=== PATIENT | female | born 1995 | race African-American/Black ===

== ENCOUNTER 2018-02-08 07:37 | Emergency (ER) | payer SELFPAY ==
[~2018-02-08 07:37] MED LIST: ACET500T68 PO; ALBU8.5H8 INH; CIPR500T94 PO; HYDR-971 PO
[2018-02-08] MEDS ORDERED: KETOROLAC 60 MG/2 ML VIAL. IM ONE (08:30)
[2018-02-08 09:28] LABS: BACTERIA,URINE MOD /HPF (0-FEW); BILIRUBIN,URINE NEG (NEG); CLARITY,URINE CLOUDY; COLOR,URINE AMBER; GLUCOSE,URINE NEG (NEG); NITRITE,URINE NEG (NEG); RBC,URINE >40 /HPF (0-2); SQUAMOUS EPITHELIAL CELL,UR OCC /LPF; UROBILINOGEN,URINE 0.2 mg/dL (0.2 mg/dL)
[2018-02-08 09:29] LABS: U PREG PATIENT NEGATIVE (NEG)
--- NOTE | 2018-02-08 09:33 | PHYS DOC ---
Past History Past Medical History: Asthma Past Surgical History: No Surgical History Alcohol Use: None Drug Use: None Adult General Chief Complaint Chief Complaint: MENSTRUAL PAIN/CRAMPS HPI HPI Patient is a 22 year old F who presents with menstrual cramps over the past 1-2 days. Lora states that she is having intermittent cramping pain in the lower abdomen. She denies other associated symptoms. She has no other exacerbating or alleviating factors. Review of Systems Review of Systems Constitutional: Denies fever or chills [] Eyes: Denies change in visual acuity, redness, or eye pain [] HENT: Denies nasal congestion or sore throat [] Respiratory: Denies cough or shortness of breath [] Cardiovascular: No additional information not addressed in HPI [] GI: Denies nausea, vomiting, bloody stools or diarrhea [] : Denies dysuria or hematuria [] Musculoskeletal: Denies back pain or joint pain [] Integument: Denies rash or skin lesions [] Neurologic: Denies headache, focal weakness or sensory changes [] Endocrine: Denies polyuria or polydipsia [] All other systems were reviewed and found to be within normal limits, except as documented in this note. Family History Family History No pertinent family medical history was reported Current Medications Current Medications Current Medications Medications (Trade) Dose Ordered Sig/[facility] Start Time Stop Time Status Last Admin Dose Admin Ketorolac Tromethamine (Toradol) 30 mg 1X ONCE 02/08/18 08:30 02/08/18 08:31 DC 02/08/18 09:04 30 MG Allergies Allergies Allergies Coded Allergies Type Severity Reaction Last Updated Verified Sulfa (Sulfonamide Antibiotics) Allergy Unknown 09/07/16 Yes carrot Allergy Unknown 09/07/16 Yes Physical Exam Physical Exam Constitutional: Well developed, well nourished, no acute distress, non-toxic appearance. [] HENT: Normocephalic, atraumatic, Eyes: EOMI, conjunctiva normal, no discharge. [] Neck: Normal range of motion, no tenderness, supple, no stridor. [] Cardiovascular:Heart rate regular rhythm, no murmur [] Lungs & Thorax: Bilateral breath sounds clear to auscultation [] Abdomen: Bowel sounds normal, soft, no masses, no pulsatile masses. [] Mild generalized tenderness to palpation Skin: Warm, dry, no erythema, no rash. [] Back: No tenderness, no CVA tenderness. [] Extremities: No tenderness, no cyanosis, no clubbing, ROM intact, no edema. [] Neurologic: Alert and oriented X 3, normal motor function, normal sensory function, no focal deficits noted. [] Psychologic: Affect normal, judgement normal, mood normal. [] Current Patient Data Vital Signs Vital Signs Date Time Temp Pulse Resp B/P (MAP) Pulse Ox O2 Delivery O2 Flow Rate FiO2 02/08/18 09:10 74 20 106/54 (71) 98 02/08/18 07:55 98.0 Lab Results Laboratory Tests Test 02/08/18 07:58 POC Urine HCG, Qualitative hcg negative (Negative) EKG EKG [] Radiology/Procedures Radiology/Procedures [] Course & Med Decision Making Course & Med Decision Making Pertinent Labs and Imaging studies reviewed. (See chart for details) Her symptoms did improve after Toradol IM Dragon Disclaimer Dragon Disclaimer This electronic medical record was generated, in whole or in part, using a voice recognition dictation system. Departure Departure: Impression: Primary Impression: Menstrual cramps Disposition: HOME, SELF-CARE Condition: STABLE Referrals: PCPNO (PCP) Patient Instructions: Abdominal Pain, Women Additional Instructions: Lora was seen in the emergency department for menstrual cramps. No emergency medical condition was found on history or physical exam. She was given treatment and her symptoms improved. She was encouraged follow-up with primary care doctor as needed for further management KATIUSKA GUZMAN MD Feb 08, 2018 09:33
[2018-02-08 10:00] VITALS: BP 103/64
== END 2018-02-08 09:45 | disposition home or self-care (01) ==
LOC: ER 07:37
DX: N94.6 Dysmenorrhea, unspecified (principal); J45.909 Unspecified asthma, uncomplicated; Z88.2 Allergy status to sulfonamides; Z91.018 Allergy to other foods
CPT/HCPCS: 81001; 81025; 84703; 87086; 96372; 99284; J1885

== ENCOUNTER 2018-12-12 01:20 | Emergency (ER) | payer SELFPAY ==
[~2018-12-12] VITALS: Ht 3 cm; Wt 63.5 kg
[~2018-12-12 01:20] MED LIST changes: +ALBU2.5V8 INH; -ALBU8.5H8 INH; +HYDR-3165 PO; -HYDR-971 PO
[2018-12-12] MEDS ORDERED: IV NORMAL SALINE 1,000ML 1,000 ML IV ONE (01:45)
[2018-12-12] MEDS ORDERED: FAMOTIDINE 20 MG/2 ML VIAL IVP ONE (01:45)
[2018-12-12] MEDS ORDERED: ONDANSETRON PF 4 MG/2 ML VIAL. IV ONE (01:45)
[2018-12-12] MEDS ORDERED: KETOROLAC 30 MG/ML VIAL. IV ONE (01:45)
[2018-12-12] MEDS ORDERED: ONDANSETRON PF 4 MG/2 ML VIAL. ONE (02:09)
[2018-12-12] MEDS ORDERED: FAMOTIDINE 20 MG/2 ML VIAL ONE (02:09)
[2018-12-12] MEDS ORDERED: KETOROLAC 15 MG/ML VIAL. ONE (02:09)
[2018-12-12 02:15] LABS: BACTERIA,URINE 0 /HPF (0-FEW); BILIRUBIN,URINE NEG (NEG); CLARITY,URINE HAZY; COLOR,URINE YELLOW; GLUCOSE,URINE NEG (NEG); NITRITE,URINE NEG (NEG); RBC,URINE >40 /HPF (0-2); SQUAMOUS EPITHELIAL CELL,UR OCC /LPF; UROBILINOGEN,URINE 0.2 mg/dL (0.2 mg/dL)
[2018-12-12 02:16] LABS: U PREG PATIENT NEGATIVE (NEG)
[2018-12-12 02:29] LABS: BASO % 1 % (0-3); EOS % 1 % (0-3); HEMATOCRIT 36.5 % (36.0-47.0); HEMOGLOBIN 12.2 g/dL (12.0-15.5); LYMPH # 2.3 x10^3/uL (1.0-4.8); LYMPH % 51 % (24-48); MEAN CORPUSCULAR HEMOGLOBIN 30 pg (25-35); MEAN CORPUSCULAR HGB CONC 34 g/dL (31-37); MEAN CORPUSCULAR VOLUME 91 fL (79-100); MONO # 0.4 x10^3/uL (0.0-1.1); MONO % 9 % (0-9); NEUT # 1.7 x10^3uL (1.8-7.7); NEUT % 38 % (31-73); PLATELET COUNT 221 x10^3/uL (140-400); RED BLOOD COUNT 4.02 x10^6/uL (3.50-5.40); WHITE BLOOD COUNT 4.5 x10^3/uL (4.0-11.0)
[2018-12-12 02:45] LABS: ALBUMIN 4.2 g/dL (3.4-5.0); ALBUMIN/GLOBULIN RATIO 1.2 (1.0-1.7); CALCIUM 9.1 mg/dL (8.5-10.1); CREATININE 0.9 mg/dL (0.6-1.0); GFR 94.7; MAGNESIUM 1.9 mg/dL (1.8-2.4); POTASSIUM 3.6 mmol/L (3.5-5.1); TOTAL BILIRUBIN 0.4 mg/dL (0.2-1.0); TOTAL PROTEIN 7.6 g/dL (6.4-8.2)
[2018-12-12] MEDS ORDERED: NAPR500T8 PO (02:52)
--- NOTE | 2018-12-12 02:53 | PHYS DOC ---
Past History Past Medical History: Asthma Past Surgical History: No Surgical History Alcohol Use: None Drug Use: None Adult General Chief Complaint Chief Complaint: ABDOMINAL PAIN HPI HPI 23-year-old female presents with report of pelvic cramping 2 days now with bleeding over the last day. Patient reports she has been using approximately 2 pads per hour. Denies fever or chills. Denies nausea or vomiting. Denies known trauma. Denies . Reports history of ovarian cyst. 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 Current Medications Current Medications Current Medications Medications (Trade) Dose Ordered Sig/Tali Start Time Stop Time Status Last Admin Dose Admin Famotidine (Pepcid Vial) 20 mg 1X ONCE 12/12/18 01:45 12/12/18 01:46 UNV 12/12/18 02:12 20 MG Ketorolac Tromethamine (Toradol 15mg Vial) 15 mg STK-MED ONCE 12/12/18 02:09 12/12/18 02:10 DC Ketorolac Tromethamine (Toradol 30mg Vial) 15 mg 1X ONCE 12/12/18 01:45 12/12/18 01:46 UNV 12/12/18 01:45 15 MG Ondansetron HCl (Zofran) 4 mg 1X ONCE 12/12/18 01:45 12/12/18 01:46 UNV 12/12/18 02:12 4 MG Sodium Chloride 1,000 ml @ 1,000 mls/hr 1X ONCE 12/12/18 01:45 12/12/18 02:44 UNV 12/12/18 02:12 1,000 MLS/HR Allergies Allergies Allergies Coded Allergies Type Severity Reaction Last Updated Verified Sulfa (Sulfonamide Antibiotics) Allergy Unknown 09/07/16 Yes carrot Allergy Unknown 09/07/16 Yes Physical Exam Physical Exam Constitutional: Well developed, well nourished, no acute distress, non-toxic appearance. [] HENT: Normocephalic, atraumatic, oropharynx moist Eyes: PERRL, EOMI, conjunctiva normal, no discharge. [] Neck: Normal range of motion, no tenderness, supple, no stridor. [] Cardiovascular: Heart rate regular rhythm, no murmur [] Lungs & Thorax: Bilateral breath sounds clear to auscultation [] Abdomen: Soft, lower pelvic pain on palpation METAL PATTERNMAKER APPRENTICE: Bone Drier RN, vaginal vault with blood noted, no CMT, no adnexal tenderness Skin: Warm, dry, no erythema, no rash. [] Back: No tenderness, no CVA tenderness. [] Extremities: No tenderness, ROM intact Neurologic: Alert and oriented X 3, normal motor function, normal sensory function, no focal deficits noted. [] Psychologic: Affect normal, judgement normal, mood normal. [] Current Patient Data Vital Signs Vital Signs Date Time Temp Pulse Resp B/P (MAP) Pulse Ox O2 Delivery O2 Flow Rate FiO2 12/12/18 01:30 97.9 80 18 98 Room Air Lab Results Laboratory Tests Test 12/12/18 01:30 12/12/18 02:00 Urine Collection Type Unknown Urine Color Yellow Urine Clarity Hazy Urine pH 5.5 Urine Specific [place] 1.025 Urine Protein 30 mg/dl (NEG-TRACE) Urine Glucose (UA) Neg mg/dL (NEG) Urine Ketones (Stick) 15 mg/dL (NEG) Urine Blood Large (NEG) Urine Nitrite Neg (NEG) Urine Bilirubin Neg (NEG) Urine Urobilinogen Dipstick 0.2 mg/dL (0.2 mg/dL) Urine Leukocyte Esterase Neg (NEG) Urine RBC >40 /HPF (0-2) Urine WBC 1-4 /HPF (0-4) Urine Squamous Epithelial Cells Occ /LPF Urine Bacteria 0 /HPF (0-FEW) Urine Test Negative (NEG) White Blood Count 4.5 x10^3/uL (4.0-11.0) Red Blood Count 4.02 x10^6/uL (3.50-5.40) Hemoglobin 12.2 g/dL (12.0-15.5) Hematocrit 36.5 % (36.0-47.0) Mean Corpuscular Volume 91 fL (79-100) Mean Corpuscular Hemoglobin 30 pg (25-35) Mean Corpuscular Hemoglobin Concent 34 g/dL (31-37) Red Cell Distribution Width 13.0 % (11.5-14.5) Platelet Count 221 x10^3/uL (140-400) Neutrophils (%) (Auto) 38 % (31-73) Lymphocytes (%) (Auto) 51 % (24-48) H Monocytes (%) (Auto) 9 % (0-9) Eosinophils (%) (Auto) 1 % (0-3) Basophils (%) (Auto) 1 % (0-3) Neutrophils # (Auto) 1.7 x10^3uL (1.8-7.7) L Lymphocytes # (Auto) 2.3 x10^3/uL (1.0-4.8) Monocytes # (Auto) 0.4 x10^3/uL (0.0-1.1) Eosinophils # (Auto) 0.0 x10^3/uL (0.0-0.7) Basophils # (Auto) 0.0 x10^3/uL (0.0-0.2) EKG EKG [] Radiology/Procedures Radiology/Procedures PROCEDURE: US PELVIS W/TV INDICATION: PELVIC PAIN CRAMPING PT STARTED PERIOD YESTERDAY BLEEDING . Last menstrual period was 12/11/2018. COMPARISON: None available. TECHNIQUE: Transabdominal and endovaginal sonography was performed FINDINGS: The uterus measures 7.7 x 3.8 x 3.6 cm. Endometrial echo complex measures 0.7 cm. No definite myometrial mass is seen. The right ovary measures 2.6 x 1.8 x 1.4 cm on the endovaginal images. The left ovary measures 3.3 x 2.0 x 1.9 cm on the endovaginal images. Flow seen to both ovaries. No definite adnexal mass is identified. There is no free fluid. IMPRESSION: 1. Essentially normal sonographic survey of the pelvis, without evidence for ovarian torsion. Electronically signed by: Javad Marie MD (12/12/2018 4:23 AM) [facility] Course & Med Decision Making Course & Med Decision Making Pertinent Labs and Imaging studies reviewed. (See chart for details) Patient presents with HPI consistent for dysmenorrhea and menorrhagia. Pain addressed. Pelvic exam performed. Chlamydia/Gonorrhea cultures pending. Patient elected to defer empiric antibiotics. Wet mount positive for BV. Labs obtained and posted to chart. H/H stable. Pelvic US without acute process. Patient stable for discharge with outpatient follow-up with PCP/METAL PATTERNMAKER APPRENTICE. [facility] report obtained without finding of controlled substance in the last 1 year. Rx for small amount of pain medication given. Discussed findings and plan with patient and friend, who acknowledge understanding and agreement. Dragon Disclaimer Dragon Disclaimer This electronic medical record was generated, in whole or in part, using a voice recognition dictation system. Departure Departure: Impression: Primary Impression: Dysmenorrhea Additional Impressions: Menorrhagia Bacterial vaginosis Disposition: HOME, SELF-CARE Condition: STABLE Referrals: PCP,KELY (PCP) Patient Instructions: Bacterial Vaginosis, [id number], Dysmenorrhea, Easy-to- Read, Menorrhagia, [id number] Additional Instructions: Please call to make an appointment to follow with an [facility]. Scripts Hydrocodone Bit/Acetaminophen (NORCO 5-325 TABLET) 1 Each Tablet 1 TAB PO Q6HRS PRN for PAIN, #10 TAB Prov: KALPANA LUCERO DO 12/12/18 Metronidazole (FLAGYL) 500 Mg Tablet 1 TAB PO BID for Vaginosis, #14 TAB Prov: KALPANA LUCERO DO 12/12/18 Naproxen (NAPROXEN) 500 Mg Tablet.dr 1 TAB PO Q12HR PRN for PAIN, #20 TAB Prov: KALPANA LUCERO DO 12/12/18 Problem Qualifiers Additional Impressions: Menorrhagia Menorrahagia type: with regular cycle Qualified Codes: N92.0 - Excessive and frequent menstruation with regular cycle KALPANA LUCERO DO Dec 12, 2018 02:53
[2018-12-12] MEDS ORDERED: METR500T PO (03:00)
[2018-12-12] MEDS ORDERED: metroNIDAZOLE 500 MG TABLET PO ONE (03:00)
[2018-12-12] MEDS ORDERED: HYDR-3165 PO (03:05)
[2018-12-12 03:06] VITALS: BP 109/68
[2018-12-12] MEDS ORDERED: metroNIDAZOLE 500 MG TABLET ONE (03:27)
--- NOTE | 2018-12-12 04:26 | RAD ---
INDICATION: PELVIC PAIN CRAMPING PT STARTED PERIOD YESTERDAY BLEEDING . Last menstrual period was 12/11/2018. COMPARISON: None available. TECHNIQUE: Transabdominal and endovaginal sonography was performed FINDINGS: The uterus measures 7.7 x 3.8 x 3.6 cm. Endometrial echo complex measures 0.7 cm. No definite myometrial mass is seen. The right ovary measures 2.6 x 1.8 x 1.4 cm on the endovaginal images. The left ovary measures 3.3 x 2.0 x 1.9 cm on the endovaginal images. Flow seen to both ovaries. No definite adnexal mass is identified. There is no free fluid. IMPRESSION: 1. Essentially normal sonographic survey of the pelvis, without evidence for ovarian torsion. Electronically signed by: Javad Marie MD (12/12/2018 4:23 AM) [facility]
[2018-12-13 13:14] LABS: CHLAMYDIA PROBE Negative (Negative)
== END 2018-12-12 03:40 | disposition home or self-care (01) ==
LOC: ER 01:20
DX: N94.6 Dysmenorrhea, unspecified (principal); N92.0 Excessive and frequent menstruation with regular cycle; N76.0 Acute vaginitis; B96.89 Other specified bacterial agents as the cause of diseases classified elsewhere; J45.909 Unspecified asthma, uncomplicated; Z88.2 Allergy status to sulfonamides; Z91.018 Allergy to other foods
CPT/HCPCS: 36415; 76830; 76856; 80053; 81001; 81025; 83690; 83735; 85025; 87491; 87591; 96374; 96375; 99284; J1885; J2405; J3010; J3490; Q0111; J7030

== ENCOUNTER 2021-04-11 09:41 | Emergency (ER) | payer BC ==
[~2021-04-11] VITALS: Ht 162.6 cm; Wt 63.6 kg
[~2021-04-11 09:41] MED LIST changes: +METR500T PO; +NAPR500T8 PO
[2021-04-11 09:45] VITALS: BP 136/90
--- NOTE | 2021-04-11 10:00 | PHYS DOC ---
Past History Past Medical History: Asthma Past Surgical History: No Surgical History Alcohol Use: None Drug Use: None Adult General HPI HPI Patient is a 26-year-old female complaining for a constellation of symptoms. Reports she is on day 9 of illness without any known inciting event, trauma, recent sick contact or travel. Reports symptoms started as a runny nose and typical URI-like symptoms that further developed into nausea and several episodes of nonbloody nonbilious emesis. Reports for past 24 hours she has had minimal p.o. intake and throwing everything up after every attempt prompting her to come in for evaluation. States she has been feverish, T-max yesterday evening was 104.9. No vision changes, nuchal rigidity, history of imm unocompromising conditions, chest pain, shortness of breath, abdominal pain, she is currently on her period. Admits to smoking and recreational alcohol use, denies illicit drug abuse. Review of Systems Review of Systems Fourteen body systems of review of systems have been reviewed. See HPI for pertinent positives and negative responses, other ambrocio all other systems are negative, non-pertinent or non-contributory Allergies Allergies Allergies Coded Allergies Type Severity Reaction Last Updated Verified Sulfa (Sulfonamide Antibiotics) Allergy Unknown 09/07/16 Yes carrot Allergy Unknown 09/07/16 Yes Physical Exam Physical Exam General: Appears well, non toxic, and comfortable Skin: Warm, dry. Normal for ethnicity. HEENT: Atraumatic. PERRLA. Rhinorrhea and congestion. Nasal turbinates boggy b/l. Moist mucous membranes. Uvula midline. Maintaining secretions but there is moderate postnasal drip present. No phonation changes. Neck: Trachea midline. Normal ROM. No stridor. No nuchal rigidity Respiratory: Normal WOB. CTAB w/o w/r/r. No tachypnea. Cardiovascular: Tachycardic rate otherwise regular rhythm. Normal peripheral perfusion. Abdomen: Soft. Non tender. No distension. Back: Normal ROM. Musculoskeletal: No swelling or deformity. Neuro: Alert and oriented x 4. MAEE. Lymph: No cervical LAD. Psych: Normal affect and mood. Current Patient Data Vital Signs Vital Signs Date Time Temp Pulse Resp B/P (MAP) Pulse Ox O2 Delivery O2 Flow Rate FiO2 04/11/21 09:45 100.4 133 22 136/90 (105) 100 Room Air Vital Signs Date Time Temp Pulse Resp B/P (MAP) Pulse Ox O2 Delivery O2 Flow Rate FiO2 04/11/21 09:45 100.4 133 22 136/90 (105) 100 Room Air Lab Results Laboratory Tests Test 04/11/21 10:40 White Blood Count 4.0 x10^3/uL Red Blood Count 4.53 x10^6/uL Hemoglobin 14.0 g/dL Hematocrit 41.1 % Mean Corpuscular Volume 91 fL Mean Corpuscular Hemoglobin 31 pg Mean Corpuscular Hemoglobin Concent 34 g/dL Red Cell Distribution Width 12.4 % Platelet Count 145 x10^3/uL Neutrophils (%) (Auto) 79 % Lymphocytes (%) (Auto) 12 % Monocytes (%) (Auto) 9 % Eosinophils (%) (Auto) 0 % Basophils (%) (Auto) 1 % Neutrophils # (Auto) 3.1 x10^3uL Lymphocytes # (Auto) 0.5 x10^3/uL Monocytes # (Auto) 0.3 x10^3/uL Eosinophils # (Auto) 0.0 x10^3/uL Basophils # (Auto) 0.0 x10^3/uL Sodium Level 141 mmol/L Potassium Level 3.8 mmol/L Chloride Level 103 mmol/L Carbon Dioxide Level 27 mmol/L Anion Gap 11 Blood Urea Nitrogen 5 mg/dL Creatinine 0.9 mg/dL Estimated GFR (Cockcroft-Gault) 92.3 Glucose Level 94 mg/dL Calcium Level 9.3 mg/dL Current Medications Medications (Trade) Dose Ordered Sig/Tali Route PRN Reason Start Time Stop Time Status Last Admin Dose Admin Sodium Chloride 1,000 ml @ 1,000 mls/hr 1X ONCE IV 04/11/21 10:45 04/11/21 11:44 04/11/21 10:45 Ondansetron HCl (Zofran) 4 mg 1X ONCE IVP 04/11/21 10:45 04/11/21 10:46 DC 04/11/21 10:45 Ketorolac Tromethamine (Toradol 15mg Vial) 15 mg 1X ONCE IVP 04/11/21 10:45 04/11/21 10:46 DC 04/11/21 10:45 EKG EKG [] Radiology/Procedures Radiology/Procedures INDICATION: Reason: COUGH / Spl. Instructions: / History: COMPARISON: None. FINDINGS: Single view of chest obtained. Hypoexpanded examination of the lungs. Cardiac silhouette unremarkable. Mild groundglass opacities. IMPRESSION: * Hypoexpanded exam with mild groundglass opacities. This could be secondary to hypoventilatory changes but small airway inflammation from causes such as pneumonitis not excluded. Electronically signed by: Randall Cherry MD (04/11/2021 11:06 AM) DESKTOP- [id number] Heart Score C/O Chest Pain: No Risk Factors: Risk Factors: DM, Current or recent (<one month) smoker, HTN, HLP, family history of CAD, obesity. Risk Scores: Risk Factors: DM, Current or recent (<one month) smoker, HTN, HLP, family history of CAD, obesity. Course & Med Decision Making Course & Med Decision Making ABCs unremarkable. I disclosed entirety of ER findings and discussed most likely diagnosis of developing pneumonia with constellation of other nonspecific sy mptoms during the middle of a COVID-19 pandemic. As such, unvaccinated individual was tested for COVID-19 today in appropriate supportive care practices in addition to a prescription for azithromycin was given. She responded to IV fluid rehydration and IV antiemetic given while in ER and felt safe for discharge home with continued supportive care and support by significant other. I stressed need for close outpatient follow-up when safe to do so to review today's ER visit. Strict return precautions were also discussed at length with good understanding by patient. Patient voiced understanding and agreement with the plan. Patient knows to come back for repeat evaluation if concerning signs or symptoms present prior to outpatient follow-up. Hemodynamically stable, ambulatory and well-appearing at time of disposition. Dragon Disclaimer Dragon Disclaimer This electronic medical record was generated, in whole or in part, using a voice recognition dictation system. Departure Departure: Impression: Primary Impression: Person under investigation for COVID-19 Additional Impression: Nausea & vomiting Disposition: 01 HOME / SELF CARE / HOMELESS Condition: IMPROVED Referrals: SÁNCHEZ ROMERO CNM (PCP) Patient Instructions: Nausea and Vomiting Additional Instructions: You were seen for headache, fever, body aches, and possible infection with COVID-19. Your physical exam was reassuring. Your chest x-ray was concerning for potential pneumonia. We tested you for COVID-19 but this test does not come back for 1 to 2 days. In the meantime you need to quarantine yourself at home away from all other individuals, especially those who are elderly or have any other chronic health issues or an immunocompromised status. You should return to the ED if you develop worsening cough, shortness of breath, chest pain, or any other new or concerning symptoms. Alternate Tylenol and ibuprofen as needed for body aches and pain. If your test does come back positive you need to quarantine yourself for 10 days until symptom-free. You should make sure to dr ink plenty of fluids and get plenty of rest. Scripts Azithromycin (AZITHROMYCIN TABLET) 250 Mg Tablet 250 MG PO DAILY for ANTI-BIOTIC for 4 Days, #4 TAB 0 Refills Prov: TANMAY MONTES DO 04/11/21 Problem Qualifiers TANMAY MONTES DO Apr 11, 2021 10:00
[2021-04-11] MEDS ORDERED: KETOROLAC 15 MG/ML VIAL. IVP ONE (10:45)
[2021-04-11] MEDS ORDERED: ONDANSETRON PF 4 MG/2 ML VIAL. IVP ONE (10:45)
[2021-04-11] MEDS ORDERED: IV NORMAL SALINE 1,000ML 1,000 ML IV ONE (10:45)
[2021-04-11 11:06] LABS: BASO % 1 % (0-3); EOS % 0 % (0-3); HEMATOCRIT 41.1 % (36.0-47.0); LYMPH # 0.5 x10^3/uL (1.0-4.8); LYMPH % 12 % (24-48); MEAN CORPUSCULAR HEMOGLOBIN 31 pg (25-35); MEAN CORPUSCULAR HGB CONC 34 g/dL (31-37); MEAN CORPUSCULAR VOLUME 91 fL (79-100); MONO # 0.3 x10^3/uL (0.0-1.1); MONO % 9 % (0-9); NEUT # 3.1 x10^3uL (1.8-7.7); NEUT % 79 % (31-73); PLATELET COUNT 145 x10^3/uL (140-400); RED BLOOD COUNT 4.53 x10^6/uL (3.50-5.40); RED CELL DISTRIBUTION WIDTH 12.4 % (11.5-14.5)
--- NOTE | 2021-04-11 11:09 | RAD ---
INDICATION: Reason: COUGH / Spl. Instructions: / History: COMPARISON: None. FINDINGS: Single view of chest obtained. Hypoexpanded examination of the lungs. Cardiac silhouette unremarkable. Mild groundglass opacities. IMPRESSION: * Hypoexpanded exam with mild groundglass opacities. This could be secondary to hypoventilatory alan ges but small airway inflammation from causes such as pneumonitis not excluded. Electronically signed by: Randall Cherry MD (04/11/2021 11:06 AM) DESKTOP-[id number]
[2021-04-11 11:12] LABS: CALCIUM 9.3 mg/dL (8.5-10.1); CREATININE 0.9 mg/dL (0.6-1.0); GFR 92.3; POTASSIUM 3.8 mmol/L (3.5-5.1)
[2021-04-11] MEDS ORDERED: AZIT250T6 PO (11:26)
[2021-04-11] MEDS ORDERED: AZITHROMYCIN 250 MG TABLET. PO ONE (11:30)
[2021-04-12] MEDS ORDERED: ONDA4TAB12 PO (14:07)
== END 2021-04-11 12:22 | disposition home or self-care (01) ==
LOC: ER 09:41
DX: U07.1 COVID-19 (principal); R11.2 Nausea with vomiting, unspecified; J45.909 Unspecified asthma, uncomplicated; Z88.2 Allergy status to sulfonamides; Z91.018 Allergy to other foods
CPT/HCPCS: 71045; 80048; 85025; 96361; 96374; 96375; 99284; C9803; J1885; J2405; J7030; U0003

== ENCOUNTER 2021-04-12 11:29 | Emergency (ER) | payer BC ==
[~2021-04-12] VITALS: Ht 162.6 cm; Wt 63.6 kg
[~2021-04-12 11:29] MED LIST changes: +AZIT250T6 PO
[2021-04-12] MEDS ORDERED: ONDANSETRON PF 4 MG/2 ML VIAL. ONE (12:12)
[2021-04-12] MEDS ORDERED: KETOROLAC 30 MG/ML VIAL. IVP ONE (12:30)
[2021-04-12] MEDS ORDERED: IV NORMAL SALINE 1,000ML 1,000 ML IV ONE (12:30)
[2021-04-12] MEDS ORDERED: ONDANSETRON PF 4 MG/2 ML VIAL. IVP ONE (12:45)
[2021-04-12 12:49] LABS: BASO % 1 % (0-3); EOS % 0 % (0-3); HEMATOCRIT 42.6 % (36.0-47.0); HEMOGLOBIN 14.1 g/dL (12.0-15.5); LYMPH # 1.4 x10^3/uL (1.0-4.8); LYMPH % 28 % (24-48); MEAN CORPUSCULAR HEMOGLOBIN 30 pg (25-35); MEAN CORPUSCULAR HGB CONC 33 g/dL (31-37); MEAN CORPUSCULAR VOLUME 91 fL (79-100); MONO # 0.5 x10^3/uL (0.0-1.1); MONO % 10 % (0-9); NEUT % 61 % (31-73); PLATELET COUNT 126 x10^3/uL (140-400); RED BLOOD COUNT 4.68 x10^6/uL (3.50-5.40); RED CELL DISTRIBUTION WIDTH 12.5 % (11.5-14.5); WHITE BLOOD COUNT 4.9 x10^3/uL (4.0-11.0)
[2021-04-12 13:02] LABS: CALCIUM 9.1 mg/dL (8.5-10.1); CREATININE 0.7 mg/dL (0.6-1.0); GFR 123.4
[2021-04-12] MEDS ORDERED: ONDA4TAB12 PO (14:07)
--- NOTE | 2021-04-12 14:08 | PHYS DOC ---
Past History Past Medical History: Asthma (KALPANA PIRES APRN) Past Surgical History: Other Additional Past Surgical Histo: HERNIA REPAIR AT AGE 3 YEARS (KALPANA PIRES APRN) Alcohol Use: None Drug Use: None (KALPANA PIRES APRN) Adult General Chief Complaint Chief Complaint: MULTIPLE COMPLAINTS HPI HPI Patient is a 26-year-old female presents to the emergency department reporting she is not feeling any better since starting her antibiotic yesterday for her COVID-19 virus infection. Patient states she continues to have body aches, fevers and chills, and throat soreness. Patient continues to deny vision changes, stiff neck, chest pains or shortness of breath, denies abdominal pains, states she is on her menses cycle now, reports nausea but denies vomiting. D enies urinary tract infection type signs and symptoms. Patient states she is a cigarette smoker and drinks alcohol occasionally with friends, denies illicit drug use. Patient states she wants something to make her feel better. Patient reports she was seen at [facility] and at a urgent care center and did not get any results, patient states she decided to come back here again and be seen today. Patient denies any other physical complaints or physical concerns. (KALPANA PIRES APRN) Review of Systems Review of Systems Constitutional: Denies fever or chills [] Eyes: Denies change in visual acuity, redness, or eye pain [] HENT: Denies nasal congestion or sore throat [] Respiratory: Denies cough or shortness of breath [] Cardiovascular: No additional information not addressed in HPI [] GI: Denies abdominal pain, nausea, vomiting, bloody stools or diarrhea [] : Denies dysuria or hematuria [] Musculoskeletal: Denies back pain or joint pain [] Integument: Denies rash or skin lesions [] Neurologic: Denies headache, focal weakness or sensory changes [] Endocrine: Denies polyuria or polydipsia [] All other systems were reviewed and found to be within normal limits, except as documented in this note. (KALPANA PIRES APRN) Current Medications Current Medications Current Medications Medications (Trade) Dose Ordered Sig/Tali Start Time Stop Time Status Last Admin Dose Admin Ketorolac Tromethamine (Toradol 30mg Vial) 30 mg 1X ONCE 04/12/21 12:30 04/12/21 12:31 DC 04/12/21 13:03 30 MG Ondansetron HCl (Zofran) 4 mg 1X ONCE 04/12/21 12:45 04/12/21 12:46 DC 04/12/21 13:02 4 MG Sodium Chloride 1,000 ml @ 1,000 mls/hr 1X ONCE 04/12/21 12:30 04/12/21 13:29 DC 04/12/21 12:27 1,000 MLS/HR (KALPANA PIRES APRN) Allergies Allergies Allergies Coded Allergies Type Severity Reaction Last Updated Verified Sulfa (Sulfonamide Antibiotics) Allergy Unknown 09/07/16 Yes carrot Allergy Unknown 09/07/16 Yes (KALPANA PIRES APRN) Physical Exam Physical Exam Constitutional: Well developed, well nourished, no acute distress, non-toxic appearance. 26-year-old female no apparent distress. HENT: Normocephalic, atraumatic, bilateral external ears normal, oropharynx moist, no oral exudates, nose normal. Bilateral nasal turbinates edematous with rhinorrhea clear drainage. No uvular edema, no tonsillar edema or erythema, no laryngeal edema appreciated, there is clear postnasal drip seen. Patient speaking in normal voice tones, no drooling, no trismus appreciated. No lympha denopathy of the head or neck appreciated. Eyes: PERRLA, EOMI, conjunctiva normal, no discharge. Neck: Normal range of motion, no tenderness, supple, no stridor. No meningismus signs, no nuchal rigidity appreciated. Cardiovascular:Heart rate regular rhythm, no murmur, heart rate tachycardic during physical examination, bedside monitor shows heart rate 108. Lungs & Thorax: Bilateral breath sounds clear to auscultation, no adventitious lung sounds appreciated. The patient is not tachypneic. Abdomen: Bowel sounds normal, soft, no tenderness, no masses, no pulsatile masses. Skin: Warm, dry, no erythema, no rash. Back: No tenderness, no CVA tenderness. Extremities: No tenderness, no cyanosis, no clubbing, ROM intact, no edema. Neurologic: Alert and oriented X 3, normal motor function, normal sensory function, no focal deficits noted. Psychologic: Affect normal, judgement normal, mood normal. (KALPANA PIRES APRN) Current Patient Data Vital Signs Vital Signs Date Time Temp Pulse Resp B/P (MAP) Pulse Ox O2 Delivery O2 Flow Rate FiO2 04/12/21 11:53 99.7 104 14 132/83 (99) 96 Lab Results Laboratory Tests Test 04/12/21 12:29 White Blood Count 4.9 x10^3/uL Red Blood Count 4.68 x10^6/uL Hemoglobin 14.1 g/dL Hematocrit 42.6 % Mean Corpuscular Volume 91 fL Mean Corpuscular Hemoglobin 30 pg Mean Corpuscular Hemoglobin Concent 33 g/dL Red Cell Distribution Width 12.5 % Platelet Count 126 x10^3/uL Neutrophils (%) (Auto) 61 % Lymphocytes (%) (Auto) 28 % Monocytes (%) (Auto) 10 % Eosinophils (%) (Auto) 0 % Basophils (%) (Auto) 1 % Neutrophils # (Auto) 3.0 x10^3uL Lymphocytes # (Auto) 1.4 x10^3/uL Monocytes # (Auto) 0.5 x10^3/uL Eosinophils # (Auto) 0.0 x10^3/uL Basophils # (Auto) 0.0 x10^3/uL Sodium Level 142 mmol/L Potassium Level 4.0 mmol/L Chloride Level 104 mmol/L Carbon Dioxide Level 24 mmol/L Anion Gap 14 Blood Urea Nitrogen 6 mg/dL Creatinine 0.7 mg/dL Estimated GFR (Cockcroft-Gault) 123.4 Glucose Level 78 mg/dL Calcium Level 9.1 mg/dL Current Medications Medications (Trade) Dose Ordered Sig/Tali Route PRN Reason Start Time Stop Time Status Last Admin Dose Admin Ondansetron HCl (Zofran) 4 mg STK-MED ONCE .ROUTE 04/12/21 12:12 04/12/21 12:12 DC Sodium Chloride 1,000 ml @ 1,000 mls/hr 1X ONCE IV 04/12/21 12:30 04/12/21 13:29 DC 04/12/21 12:27 Ketorolac Tromethamine (Toradol 30mg Vial) 30 mg 1X ONCE IVP 04/12/21 12:30 04/12/21 12:31 DC 04/12/21 13:03 Ondansetron HCl (Zofran) 4 mg 1X ONCE IVP 04/12/21 12:45 04/12/21 12:46 DC 04/12/21 13:02 Laboratory Tests Test 04/12/21 12:29 White Blood Count 4.9 x10^3/uL (4.0-11.0) Red Blood Count 4.68 x10^6/uL (3.50-5.40) Hemoglobin 14.1 g/dL (12.0-15.5) Hematocrit 42.6 % (36.0-47.0) Mean Corpuscular Volume 91 fL (79-100) Mean Corpuscular Hemoglobin 30 pg (25-35) Mean Corpuscular Hemoglobin Concent 33 g/dL (31-37) Red Cell Distribution Width 12.5 % (11.5-14.5) Platelet Count 126 x10^3/uL (140-400) L Neutrophils (%) (Auto) 61 % (31-73) Lymphocytes (%) (Auto) 28 % (24-48) Monocytes (%) (Auto) 10 % (0-9) H Eosinophils (%) (Auto) 0 % (0-3) Basophils (%) (Auto) 1 % (0-3) Neutrophils # (Auto) 3.0 x10^3uL (1.8-7.7) Lymphocytes # (Auto) 1.4 x10^3/uL (1.0-4.8) Monocytes # (Auto) 0.5 x10^3/uL (0.0-1.1) Eosinophils # (Auto) 0.0 x10^3/uL (0.0-0.7) Basophils # (Auto) 0.0 x10^3/uL (0.0-0.2) Sodium Level 142 mmol/L (136-145) Potassium Level 4.0 mmol/L (3.5-5.1) Chloride Level 104 mmol/L (98-107) Carbon Dioxide Level 24 mmol/L (21-32) Anion Gap 14 (6-14) Blood Urea Nitrogen 6 mg/dL (7-20) L Creatinine 0.7 mg/dL (0.6-1.0) Estimated GFR (Cockcroft-Gault) 123.4 Glucose Level 78 mg/dL (70-99) Calcium Level 9.1 mg/dL (8.5-10.1) (KALPANA PIRES APRN) EKG EKG [] (KALPANA PIRES APRN) Radiology/Procedures Radiology/Procedures [] (KALPANA PIRES APRN) Heart Score C/O Chest Pain: No Risk Factors: Risk Factors: DM, Current or recent (<one month) smoker, HTN, HLP, family history of CAD, obesity. Risk Scores: Risk Factors: DM, Current or recent (<one month) smoker, HTN, HLP, family history of CAD, obesity. (KALPANA PIRES APRN) Course & Med Decision Making Course & Med Decision Making Pertinent Labs and Imaging studies reviewed. (See chart for details) 26-year-old female, vital signs reviewed, presents emergency department for reevaluation of her COVID-19 symptoms. Physical examination consistent with viral illness, patient was seen here yesterday, no apparent changes from previous ED providers examination note. The patient is slightly tachycardic with heart rate between 103 and 108, will order IV saline lock for 1 L normal saline, will give 4 mg Zofran for nausea, will order CBC and BMP to rule out other infectious process. Patient did have Covid testing performed and was positive, COVID-19 specific PPE worn during patient interactions. After period of time, patient's heart rate down to 90 after 1 L of fluid, states she has no longer nauseated, states she still feels body aches and generally feels bad, discussed with patient she does have the COVID-19 virus infection, recommended using [id number] Tylenol and or Motrin for aches and pains, increase fluids, self-isolation, will give COVID-19 virus information on discharge instructions. Patient will be discharged home. Patient gave verbal understanding of discharge home instructions, follow-up with PCP soon, continue taking prescribed medications from ED visit yesterday, return to ER precautions or concerns, patient had no further questions or concerns and was discharged home without incident. (KALPANA PIRES APRN) Course & Med Decision Making I oversaw on the above date of service of this patient. This patient was evaluated, examined, treated, and dispositioned from the emergency department by the mid-level practitioner. Patient went to outside ER and then our ER yesterday where I treated her with azithromycin in tested her for Covid which she was positive for. She presented to urgent care, and outside ER and then to our ER today after prior facilities advised home discharge with supportive care. There is no criteria for inpatient medical management and a well-appearing hemodynamically stable patient. I reviewed note and agree to findings, plan of care, and disposition as stated. Electronically signed, Tanmay Montes DO (TANMAY MONTES DO) Cesar Disclaimer Cesar Disclaimer This electronic medical record was generated, in whole or in part, using a voice recognition dictation system. (KALPANA PIRES APRN) Departure Departure: Impression: Primary Impression: COVID-19 Disposition: HOME / SELF CARE / HOMELESS Condition: GOOD Referrals: SÁNCHEZ ROMERO CNM (PCP) Additional Instructions: You were seen today in the emergency department for ongoing symptoms of your COVID-19 virus infection. You were given 1 L of normal saline and IV Zofran for nausea. I am prescribing you a prescription for Zofran to take for nausea. Please take as directed as needed for nausea. You were started on a antibiotic yesterday by the ED provider you seen, please continue to take this medication as directed. I encourage you to follow-up with your primary care physician tomorrow or soon this week. Please use [id number] Tylenol and/or Motrin for fevers, chills, and body aches. I have attached COVID-19 virus information to this document, please review. Please continue to self isolate to help minimize the spread of infection. Please return to the emergency department for worsening symptoms or other concerns. EMERGENCY DEPARTMENT GENERAL DISCHARGE INSTRUCTIONS Thank you for coming to [facility] (ED) today and trusting us with you care. We trust that you had a positivie experience in our Emergency Department. If you wish to speak to the department management, you may call the director at [phone]. YOUR FOLLOW UP INSTRUCTIONS ARE FOLLOWS: 1. Do you have a private Doctor? If you do not have a private doctor, please ask for a resource list of physicians or clinics that may be able to assist you with follow up care. 2. The Emergency Physician has interpreted your x-rays. The X-Ray specialist will also review them. If there is a change in the findings, you will be notified in 48 hours when at all possible. 3. A lab test or culture has been done, your results will be reviewed and you will be notified if you need a change in treatment. ADDITIONAL INSTRUCTIONS AND INFORMATION: 1. Your care today has been supervised by a physician who is specially trained in emergency care. Many problems require more than one evaluation for a complete diagnosis and treatment. We recommend that you schedule your follow up appointment as recommended to ensure complete treatment of you illness or injury. If you are unable to obtain follow up care and continue to have a problem, or if your condition worsens, we recommend that you return to the ED. 2. We are not able to safely determine your condition over the phone nor are we able to give sound medical advice over the phone. For these safety reasons, if you call for medical advice we will ask you to come to the ED for further evaluation. 3. If you have any questions regarding these discharge instructions please call the ED at [phone]. SAFETY INFORMATION: In the interest of safety, wellness, and injury prevention; we encourage you to wear your sealbelt, if you smoke; quite smoking, and we encourage family to use a protective helmet for bicycling and other sporting events that present an increased risk for head injury. IF YOUR SYMPTOMS WORSEN OR NEW SYMPTOMS DEVELOP, OR YOU HAVE CONCERNS ABOUT YOUR CONDITION; OR IF YOUR CONDITION WORSENS WHILE YOU ARE WAITING FOR YOUR FOLLOW UP APPOINTMENT; EITHER CONTACT YOUR PRIMARY CARE DOCTOR, THE PHYSICIAN WHOSE NAME AND NUMBER YOU WERE GIVEN, OR RETURN TO THE ED IMMEDIATELY. You have been tested for or diagnosed with COVID-19. It is an infection caused by a new type of coronavirus. COVID-19 will cause cold-like or mild flu symptoms in most. It can cause more severe symptoms like problems breathing in some. There is no treatment for COVID-19. The body will clear the infection over time. Self-care will help to ease discomfort. Steps to Take: Self-Care Rest as needed. Healthy habits may help you feel better. Steps include: Choose healthy foods including fruits and vegetables. Drink water throughout the day. Get plenty of sleep each night. If you smoke, try to quit. It may ease breathing. Avoid alcohol. Keep Others Healthy The virus can spread to others. Droplets are released every time you sneeze or cough. The droplets can get into the mouth, nose, or eyes of people near you and lead to infection. To lower the chances of spreading COVID-19 to others: Stay at home until your doctor has said it is safe to leave. If you tested positive this will mean staying isolated until both of the following are true: At least 7 days have passed since the start of illness. You are free of fever for at least 72 hours without the use of medicine. During this time: - Avoid public areas, events, or transportation. Do not return to work or school until your doctor has said it is safe to do so. - Call ahead if you need to go to a medical center. Let them know you may have COVID-19. It will help them guide you where to go. They may also ask you to wear a facemask when you come to the office. - If you call for emergency medical services, let them know you may have COVID- 19. While at home: - Try to avoid close contact with others. Stay about 6 feet away. - If possible, spend most of your time in a separate room from others. - Use a face mask if you will be in close contact with others such as sharing a room or vehicle. - Have someone wipe down common surfaces in the home. Use household hot car charger every day on areas like doorknobs, counters, or sinks. - Cough or sneeze into a tissue. Throw the tissue away right after use. If a tissue is not available, cough or sneeze into your elbow. - Wash your hands often. Wash them after sneezing or coughing. Use soap and water and wash for at least 20 seconds. Alcohol based hand cleaner industrial can be used if soap and wate r is not available. - Do not prepare food for others. Avoid sharing personal items like forks, spoons, or toothbrushes. - Avoid close contact with pets while you are sick. There is no evidence of the virus passing to pets. This is a safety step until more is known about this virus. Isolation can be frustrating. Social interaction can help. Keep in touch with friends and family through phone and tech options. You can still interact with others in your home, just keep a safe distance of about 6 feet. Follow-up: Your doctors office will check in with you to see if there are any changes in your health. You may be asked to keep track of symptoms to share with them. They will also let you know when you are clear to be in public again. Problems to Look Out For: Contact your doctor if your recovery is not going as you expect. Get emergency care if you have problems such as: - Trouble breathing - Nonstop chest pain or pressure - Changes in awareness, confusion, or problems waking - Lips or face have bluish color - Worsening of symptoms If you think you have an emergency, call for emergency medical services right away. As taken from [facility] Ondansetron (ONDANSETRON ODT) 4 Mg Tab.rapdis 1 TAB PO PRN Q6-8HRS for nausea, #16 TAB 0 Refills Prov: KALPANA PIRES APRN 04/12/21 KALPANA PIRES APRN Apr 12, 2021 14:08 TANMAY MONTES DO Apr 12, 2021 16:55
[2021-04-12 14:40] VITALS: BP 119/72
== END 2021-04-12 14:48 | disposition home or self-care (01) ==
LOC: ER 11:29
DX: U07.1 COVID-19 (principal); J45.909 Unspecified asthma, uncomplicated; Z88.2 Allergy status to sulfonamides
CPT/HCPCS: 36415; 80048; 85025; 96361; 96374; 96375; 99284; J1885; J2405; J7030